=== PATIENT | female | born 1945 | race African-American/Black ===

== ENCOUNTER 2019-04-02 19:23 | Emergency (ER) | payer OTHER ==
[~2019-04-02] VITALS: Ht 167.6 cm; Wt 68.5 kg
[~2019-04-02 19:23] MED LIST: ALBU0.0967 IH; ASPI81EC98 PO; ATOR20TA PO; BECL0.089 IH; BECL0.089 INH; CARV6.25 PO; DAPA5TAB PO; GLIP5TAB4 PO; LEVO500T6 PO; LOSA25TA14 PO; PRED50TA3 PO; RANI-451 PO; UMEC1POW PO
[2019-04-02 19:29] VITALS: BP 175/86
--- NOTE | 2019-04-02 19:32 | NUR ---
TO LOBBY A/W BED AMBULATORY
--- NOTE | 2019-04-02 19:43 | NUR ---
AMBULATED TO ER BED 7
--- NOTE | 2019-04-02 20:04 | NUR ---
PT CAME TO ER C/O SOB X 2 DAYS WITH COUGH. PER PT SHE TAKES FLUTEICASONE PROPIUNATEE 250MCG/SALMETEROL 50MCG. PER PT SHE TOOK 2 PUFFS OF ALBUTEROL AT 19:15. PT IN HIGH FOWLERS POSITION. RESPIRATIONS ARE EVEN AND O2 AT 96% ON ROOM AIR. BREATH SOUNDS BILATERALLY COARSE IN UPPER AIRWAYS. PT DENIES ANY PAIN. PAIN LEVEL 0/10. MED HX: DM, ASTHMA, AND COPD. ALLERGIES: SULFA. SAFETY MEASURES IN PLACE. WAITING FOR ERMD TO EVALUATE PT.
--- NOTE | 2019-04-02 20:44 | NUR ---
PT AMBULATED TO RESTROOM
--- NOTE | 2019-04-02 21:00 | NUR ---
ERMD AT BEDSIDE
[2019-04-02] MEDS ORDERED: IPRATROPIUM 0.02% 0.5 MG/2.5 ML NEBU INH ONE (21:05)
[2019-04-02] MEDS ORDERED: predniSONE 20 MG TAB PO ONE (21:05)
[2019-04-02] MEDS ORDERED: ALBUTEROL 0.083% 2.5 MG/3 ML NEBU INH ONE (21:05)
--- NOTE | 2019-04-02 21:20 | NUR ---
RT AT BEDSIDE
--- NOTE | 2019-04-02 21:55 | NUR ---
PER PT SHE SAYS SHE FEELS ALOT BETTER. O2 SATURATION AT 97% ON ROOM AIR.
--- NOTE | 2019-04-02 21:55 | NUR ---
PT TAKEN TO XRAY
--- NOTE | 2019-04-02 22:30 | NUR ---
PT RESTING IN BED, TALKING TO DAUGHTER. VSS. WILL CONTINUE TO MONITOR.
--- NOTE | 2019-04-02 23:15 | NUR ---
ERMD AT BEDSIDE
[2019-04-03 00:01] VITALS: BP 147/61
--- NOTE | 2019-04-03 00:02 | NUR ---
Patient discharged with v/s stable. Written and verbal after care instructions given and explained. Patient alert, oriented and verbalized understanding of instructions. Ambulatory with steady gait. All questions addressed prior to discharge. ID band removed. Patient advised to follow up with PMD. Rx of PREDNISONE, AZYTHROMYCIN, VENTOLIN given. Patient educated on indication of medication including possible reaction and side effects. Opportunity to ask questions provided and answered.
== END 2019-04-03 00:01 | disposition home or self-care (01) ==
LOC: MED 19:23
DX: J44.1 Chronic obstructive pulmonary disease with (acute) exacerbation (principal); E11.9 Type 2 diabetes mellitus without complications; I10 Essential (primary) hypertension; Z79.82 Long term (current) use of aspirin; Z79.899 Other long term (current) drug therapy; Z88.2 Allergy status to sulfonamides
CPT/HCPCS: 71046; 93005; 94644; 94760; 99285; J7512; J7613; J7644; 99283

== ENCOUNTER 2021-10-31 17:13 | Emergency (ER) | payer OTHER ==
[~2021-10-31] VITALS: Ht 162.6 cm; Wt 59.9 kg
[~2021-10-31 17:13] MED LIST changes: +GLIP5TAB14 PO; -GLIP5TAB4 PO; -LOSA25TA14 PO; +LOSA25TA32 PO; -RANI-451 PO; +RANI-553 PO
[2021-10-31 17:19] VITALS: BP 140/70
--- NOTE | 2021-10-31 18:20 | NUR ---
PT AMBULATED TO ER BED 2
[2021-10-31 18:35] LABS: BASOPHILS # (AUTO) 0.1 K/uL (0.00-0.22); BASOPHILS % (AUTO) 1.1 % (0.0-2.0); EOSINOPHILS # (AUTO) 0.2 K/uL (0-0.4); EOSINOPHILS % (AUTO) 2.3 % (0.0-4.0); HEMATOCRIT 38.4 % (36-48); HEMOGLOBIN 12.7 g/dL (12.0-16.0); LYMPHOCYTES # (AUTO) 1.6 K/uL (2.5-16.5); MEAN CORPUSCULAR HEMOGLOBIN 31 pg (27-31); MEAN CORPUSCULAR HGB CONC 33 g/dL (33-37); MEAN CORPUSCULAR VOLUME 93.4 fL (80-94); MONOCYTES # (AUTO) 0.7 K/uL (0.8-1.0); NEUTROPHILS # (AUTO) 6.2 K/uL (1.8-7.7); NEUTROPHILS % (AUTO) 70.6 % (42.2-75.2); PLATELET COUNT (AUTO) 256 K/uL (140-450); RED BLOOD CELL COUNT(AUTO) 4.11 MIL/uL (4.20-5.40); WHITE BLOOD COUNT (AUTO) 8.8 K/uL (4.8-10.8)
--- NOTE | 2021-10-31 18:40 | NUR ---
76/F BIB SELF WITH C/O LOWER ABDOMINAL PAIN RADIATING TO LOWER BACK SINCE YESTERDAY, STATES TODAY SHE NOTICED "BROWN DISCHARGE" WHEN WIPING HERSELF. SKIN IS PINK/WARM/DRY; AAOX4 WITH EVEN AND STEADY GAIT; LUNGS CLEAR BL; HR EVEN AND REGULAR; PT DENIES ANY FEVER, CP, SOB, OR COUGH AT THIS TIME; PATIENT STATES PAIN OF 2/10 AT THIS TIME; VSS; PATIENT POSITIONED FOR COMFORT; HOB ELEVATED; BEDRAILS UP X2; BED DOWN. ER MD MADE AWARE OF PT STATUS. MEDHX: DM, HTN, COPD, ASTHMA ALLERGIES: SULFA MEDS: FARXIGA, GLIPIZIDE, ASPIRIN, ALBUTEROL
[2021-10-31 18:52] LABS: APPEARANCE,URINE CLEAR (CLEAR); BILIRUBIN,URINE NEGATIVE (NEGATIVE); BLOOD, URINE NEGATIVE (NEGATIVE); COLOR,URINE YELLOW (YELLOW); LEUKOCYTE ESTERASE ,URINE NEGATIVE (NEGATIVE); NITRITE, URINE NEGATIVE (NEGATIVE); PH,URINE 5.5 (5.0-9.0); UGLUCOSE 3+ (NEGATIVE)
[2021-10-31 18:59] LABS: ALBUMIN 3.6 g/dL (3.4-5.0); ANION GAP 10.9 (8-16); ASPARTATE AMINOTRANSFERASE 14 U/L (15-37); CARBON DIOXIDE 30.2 mmol/L (21-32); CHLORIDE 109 mmol/L (98-107); CREATININE 1.1 mg/dL (0.6-1.3); GLUCOSE 177 mg/dL (74-106); POTASSIUM 4.1 mmol/L (3.5-5.1); SODIUM SERUM 146 mmol/L (136-145); TOTAL BILIRUBIN 0.2 mg/dL (0.0-1.0); UREA NITROGEN, BLOOD 16 mg/dL (7-18)
--- NOTE | 2021-10-31 19:30 | NUR ---
ENDORSED BEDSIDE REPORT TO CEJOHNATHAN KANG RN FOR CONTINUITY OF CARE.
[2021-10-31 20:34] VITALS: BP 140/70
--- NOTE | 2021-10-31 20:34 | NUR ---
Patient discharged with v/s stable. Written and verbal after care instructions given and explained. Patient verbalized understanding. Ambulatory with steady gait. All questions addressed prior to discharge. Advised to follow up with PMD. VSS, A/OX4, AMBULATORY, UNALBORED BREATHING, AND CALM DEMEANOR.
== END 2021-10-31 20:34 | disposition home or self-care (01) ==
LOC: MED 17:13
DX: N95.0 Postmenopausal bleeding (principal); J44.9 Chronic obstructive pulmonary disease, unspecified; I10 Essential (primary) hypertension; E11.9 Type 2 diabetes mellitus without complications; Z88.2 Allergy status to sulfonamides; Z79.2 Long term (current) use of antibiotics; Z79.899 Other long term (current) drug therapy; Z79.82 Long term (current) use of aspirin
CPT/HCPCS: 36415; 76856; 80053; 81003; 85025; 99284; Q0092

== ENCOUNTER 2022-04-24 12:25 | Emergency (ER) | payer MEDICARE, OTHER ==
[~2022-04-24] VITALS: Ht 167.6 cm; Wt 56.7 kg
[2022-04-24 12:27] VITALS: BP 146/71
--- NOTE | 2022-04-24 12:40 | NUR ---
C/O GENERALIZED WEAKNESS, 7/10 LEFT THIGH PAIN X 3 DAYS. BLOOD SUGAR 121 AT THIS TIME. PMH: BLIND LEFT EYE, DM
--- NOTE | 2022-04-24 12:40 | NUR ---
PATIENT AMBULATED WITH ASSIST TO BED 2.
[2022-04-24] MEDS ORDERED: NACL 0.9% 1,000 ML IV ONE (12:55)
[2022-04-24 14:18] LABS: BASOPHILS # (AUTO) 0.1 K/uL (0.00-0.22); BASOPHILS % (AUTO) 0.9 % (0.0-2.0); EOSINOPHILS # (AUTO) 0.2 K/uL (0-0.4); EOSINOPHILS % (AUTO) 3.1 % (0.0-4.0); HEMATOCRIT 40.1 % (36-48); HEMOGLOBIN 13.2 g/dL (12.0-16.0); LYMPHOCYTES # (AUTO) 1.7 K/uL (2.5-16.5); LYMPHOCYTES % (AUTO) 24.5 % (20.5-51.1); MEAN CORPUSCULAR HEMOGLOBIN 31 pg (27-31); MEAN CORPUSCULAR HGB CONC 33 g/dL (33-37); MEAN CORPUSCULAR VOLUME 92.8 fL (80-94); MONOCYTES # (AUTO) 0.6 K/uL (0.8-1.0); MONOCYTES % (AUTO) 8.3 % (1.7-9.3); NEUTROPHILS # (AUTO) 4.3 K/uL (1.8-7.7); NEUTROPHILS % (AUTO) 63.2 % (42.2-75.2); PLATELET COUNT (AUTO) 207 K/uL (140-450); RED BLOOD CELL COUNT(AUTO) 4.32 MIL/uL (4.20-5.40); RED CELL DISTRIBUTION WIDTH 15.2 % (11.6-13.7); WHITE BLOOD COUNT (AUTO) 6.9 K/uL (4.8-10.8)
[2022-04-24 14:36] LABS: ALBUMIN 3.5 g/dL (3.4-5.0); ANION GAP 13.4 (8-16); ASPARTATE AMINOTRANSFERASE 14 U/L (15-37); CARBON DIOXIDE 28.6 mmol/L (21-32); CHLORIDE 108 mmol/L (98-107); CREATININE 0.7 mg/dL (0.6-1.3); FREE T4 (FREE THYROXINE) 0.79 ng/dL (0.76-1.46); GLUCOSE 99 mg/dL (74-106); MAGNESIUM 2.2 mg/dL (1.8-2.4); PHOSPHORUS 4.2 mg/dL (2.5-4.9); SODIUM SERUM 146 mmol/L (136-145); THYROID STIMULATING HORMONE 0.52 uIU/mL (0.34-3.74); TOTAL BILIRUBIN 0.3 mg/dL (0.0-1.0); UREA NITROGEN, BLOOD 17 mg/dL (7-18)
[2022-04-24 16:35] VITALS: BP 144/71
--- NOTE | 2022-04-24 16:35 | NUR ---
Patient discharged with v/s stable. Written and verbal after care instructions FOR MUSCLE CRAMPS given and explained. Patient verbalized understanding. Ambulatory with steady gait. All questions addressed prior to discharge. Advised to follow up with PMD.
--- NOTE | 2022-04-24 16:36 | NUR ---
The patient's care was reviewed and supervised by Paulina Natarajan RN.
[2022-04-24 17:58] LABS: APPEARANCE,URINE CLEAR (CLEAR); BILIRUBIN,URINE NEGATIVE (NEGATIVE); BLOOD, URINE NEGATIVE (NEGATIVE); COLOR,URINE YELLOW (YELLOW); LEUKOCYTE ESTERASE ,URINE NEGATIVE (NEGATIVE); NITRITE, URINE NEGATIVE (NEGATIVE); PH,URINE 5.5 (5.0-9.0); UGLUCOSE 3+ (NEGATIVE)
== END 2022-04-24 16:35 | disposition home or self-care (01) ==
LOC: MED 12:25
DX: M62.838 Other muscle spasm (principal); R53.1 Weakness; J44.9 Chronic obstructive pulmonary disease, unspecified; E11.9 Type 2 diabetes mellitus without complications; I10 Essential (primary) hypertension; Z79.2 Long term (current) use of antibiotics; Z79.899 Other long term (current) drug therapy; Z79.82 Long term (current) use of aspirin; Z88.2 Allergy status to sulfonamides
CPT/HCPCS: 36415; 80053; 81003; 82550; 83735; 84100; 84439; 84443; 84484; 85025; 93005; 96360; 99284; J7030

== ENCOUNTER 2022-09-09 12:43 | Emergency (ER) | payer MEDICARE ==
[~2022-09-09] VITALS: Ht 165.1 cm; Wt 59.9 kg
[2022-09-09 13:07] VITALS: BP 144/77
--- NOTE | 2022-09-09 13:17 | NUR ---
C/O SOB, COUGH, NASAL CONGESTION X5 DAYS WITH INCREASED SOB TODAY. TOOK INHALER TODAY X2 H AGO FOR SOB, SATTING 89% ON TRIAGE ALLERGY: SULFA PM: DM, ASTHMA Addendum: 09/09/22 at 1319 by MNSAMANTA COPD
--- NOTE | 2022-09-09 14:12 | NUR ---
DR MIDDLETON AT BEDSIDE FOR EVAL
[2022-09-09] MEDS ORDERED: predniSONE 20 MG TAB PO ONE (14:15)
[2022-09-09] MEDS ORDERED: ALBUTEROL 0.083% 2.5 MG/3 ML NEBU INH ONE (14:15)
[2022-09-09] MEDS ORDERED: IPRATROPIUM 0.02% 0.5 MG/2.5 ML NEBU INH ONE (14:15)
--- NOTE | 2022-09-09 14:30 | NUR ---
RT AT BEDSIDE
[2022-09-09 15:00] VITALS: BP 153/57
[2022-09-09 15:00] LABS: BASOPHILS # (AUTO) 0.1 K/uL (0.00-0.22); BASOPHILS % (AUTO) 0.9 % (0.0-2.0); EOSINOPHILS # (AUTO) 0.5 K/uL (0-0.4); EOSINOPHILS % (AUTO) 6.1 % (0.0-4.0); HEMATOCRIT 39.8 % (36-48); HEMOGLOBIN 13.1 g/dL (12.0-16.0); LYMPHOCYTES % (AUTO) 21.5 % (20.5-51.1); MEAN CORPUSCULAR HEMOGLOBIN 30 pg (27-31); MEAN CORPUSCULAR HGB CONC 33 g/dL (33-37); MEAN CORPUSCULAR VOLUME 92.3 fL (80-94); MONOCYTES # (AUTO) 0.9 K/uL (0.8-1.0); MONOCYTES % (AUTO) 9.5 % (1.7-9.3); NEUTROPHILS # (AUTO) 5.6 K/uL (1.8-7.7); PLATELET COUNT (AUTO) 243 K/uL (140-450); RED BLOOD CELL COUNT(AUTO) 4.31 MIL/uL (4.20-5.40); RED CELL DISTRIBUTION WIDTH 14.3 % (11.6-13.7); WHITE BLOOD COUNT (AUTO) 9.1 K/uL (4.8-10.8)
[2022-09-09 15:38] LABS: ALBUMIN 4.3 g/dL (3.4-5.0); ANION GAP 12.5 (8-16); ASPARTATE AMINOTRANSFERASE 24 U/L (15-37); CARBON DIOXIDE 31.5 mmol/L (21-32); CHLORIDE 103 mmol/L (98-107); CREATININE 0.7 mg/dL (0.6-1.3); GLUCOSE 98 mg/dL (74-106); SODIUM SERUM 143 mmol/L (136-145); TOTAL BILIRUBIN 0.5 mg/dL (0.0-1.0); UREA NITROGEN, BLOOD 12 mg/dL (7-18)
[2022-09-09] MEDS ORDERED: ALBU0.0912 INH (16:09)
[2022-09-09] MEDS ORDERED: PRED20TA5 PO (16:09)
--- NOTE | 2022-09-09 16:19 | NUR ---
Patient discharged with v/s stable. Written and verbal after care instructions ABOUT COPD EXACERBATION, ASTHMA AND TOBACCO USE given and explained. Patient alert, oriented and verbalized understanding of instructions. Ambulatory with steady gait. All questions addressed prior to discharge. ID band removed. Patient advised to follow up with PMD. Rx of PREDNISONE, ALBUTEROL given. Patient educated on indication of medication including possible reaction and side effects. Opportunity to ask questions provided and answered.
== END 2022-09-09 16:19 | disposition home or self-care (01) ==
LOC: MED 12:43
DX: J44.1 Chronic obstructive pulmonary disease with (acute) exacerbation (principal); Z20.822 Contact with and (suspected) exposure to COVID-19; E11.9 Type 2 diabetes mellitus without complications; F17.200 Nicotine dependence, unspecified, uncomplicated; E78.5 Hyperlipidemia, unspecified; Z79.4 Long term (current) use of insulin; Z79.899 Other long term (current) drug therapy
CPT/HCPCS: 36415; 71045; 80053; 85025; 87426; 87804; 93005; 94640; 94760; 99285; J7512; J7613; J7644

== ENCOUNTER 2022-10-10 08:30 | Emergency (ER) | payer MEDICARE ==
[~2022-10-10] VITALS: Ht 165.1 cm; Wt 63.2 kg
[~2022-10-10 08:30] MED LIST changes: +ALBU0.0912 INH; +PRED20TA5 PO
[2022-10-10 08:35] VITALS: BP 168/73
--- NOTE | 2022-10-10 08:44 | NUR ---
PT AMB TO BED 4.
[2022-10-10] MEDS ORDERED: predniSONE 20 MG TAB PO ONE (08:55)
[2022-10-10] MEDS ORDERED: ALBUTEROL SULFATE/IPRATROPIU 3 ML SOL IH ONE (08:55)
[2022-10-10] MEDS ORDERED: ALBUTEROL 0.083% 2.5 MG/3 ML NEBU INH ONE (08:55)
--- NOTE | 2022-10-10 09:04 | NUR ---
RT AT BEDSIDE FOR BREATHING TREATMENT.
[2022-10-10] MEDS ORDERED: PRED20TA5 PO (09:10)
[2022-10-10] MEDS ORDERED: ALBU0.0912 IH (09:10)
--- NOTE | 2022-10-10 09:17 | NUR ---
X-Ray at bedside.
[2022-10-10 09:47] VITALS: BP 168/73
--- NOTE | 2022-10-10 09:47 | NUR ---
Patient discharged with v/s stable. Written and verbal after care instructions given and explained. Patient alert, oriented and verbalized understanding of instructions. Ambulatory with DAUGHTER to car. All questions addressed prior to discharge. ID band removed. Patient advised to follow up with PMD. Rx of ALBUTEROL, PREDNISONE (SENT) given. Patient educated on indication of medication including possible reaction and side effects. Opportunity to ask questions provided and answered. COPY OF IMAGING GIVEN AT THIS TIME
== END 2022-10-10 09:47 | disposition home or self-care (01) ==
LOC: MED 08:30
DX: J44.1 Chronic obstructive pulmonary disease with (acute) exacerbation (principal); E11.9 Type 2 diabetes mellitus without complications; F17.200 Nicotine dependence, unspecified, uncomplicated; Z98.890 Other specified postprocedural states; Z79.899 Other long term (current) drug therapy; Z79.2 Long term (current) use of antibiotics; Z79.82 Long term (current) use of aspirin; Z88.2 Allergy status to sulfonamides
CPT/HCPCS: 71045; 82948; 94640; 99283; J7512; J7613; Q0092

== ENCOUNTER 2023-05-03 21:08 | Observation (INO) | payer MEDICARE ==
[~2023-05-03] VITALS: Ht 167.6 cm; Wt 59.4 kg
[~2023-05-03 21:08] MED LIST changes: +ALBU0.0912 IH; +FURO-572 PO
[2023-05-03 21:16] VITALS: BP 125/66; PULSE 88; RESP 24; TEMP 97; O2SAT 87
[2023-05-03 21:45] VITALS: O2SAT 94
[2023-05-03] MEDS ORDERED: IPRATROPIUM 0.02% 0.5 MG/2.5 ML NEBU INH ONE (21:45)
[2023-05-03] MEDS ORDERED: ALBUTEROL 0.083% 2.5 MG/3 ML NEBU INH ONE (21:45)
[2023-05-03 22:02] VITALS: PULSE 76; PULSE 78; RESP 22; O2SAT 93
[2023-05-03 22:20] LABS: HEMATOCRIT 37.5 % (36-48); HEMOGLOBIN 12.5 g/dL (12.0-16.0); MEAN CORPUSCULAR HGB CONC 33 g/dL (33-37); WHITE BLOOD COUNT (AUTO) 7.7 K/uL (4.8-10.8)
[2023-05-03 22:23] LABS: BASOPHILS # (AUTO) 0.1 K/uL (0.00-0.22); BASOPHILS % (AUTO) 0.9 % (0.0-2.0); EOSINOPHILS # (AUTO) 0.1 K/uL (0-0.4); EOSINOPHILS % (AUTO) 0.9 % (0.0-4.0); LYMPHOCYTES # (AUTO) 0.7 K/uL (2.5-16.5); LYMPHOCYTES % (AUTO) 9.3 % (20.5-51.1); MEAN CORPUSCULAR HEMOGLOBIN 30 pg (27-31); MEAN CORPUSCULAR VOLUME 90.6 fL (80-94); MONOCYTES # (AUTO) 0.2 K/uL (0.8-1.0); MONOCYTES % (AUTO) 2.5 % (1.7-9.3); NEUTROPHILS # (AUTO) 6.7 K/uL (1.8-7.7); NEUTROPHILS % (AUTO) 86.4 % (42.2-75.2); PLATELET COUNT (AUTO) 242 K/uL (140-450); RED BLOOD CELL COUNT(AUTO) 4.14 MIL/uL (4.20-5.40); RED CELL DISTRIBUTION WIDTH 14.1 % (11.6-13.7)
[2023-05-03] MEDS ORDERED: MAG SULF 2000 MG/WATER PREMIX 50 ML IV ONE (22:25)
[2023-05-03] MEDS ORDERED: PIPERACILLIN/TAZOBACTAM 3.375 GM in DEXTROSE 5% 50 ML IV ONE (22:25)
[2023-05-03 22:35] LABS: INR 1.01 (0.8-1.2); PARTIAL THROMBOPLASTIN TIME 23.3 secs (22-35.6); PROTHROMBIN TIME 10.6 secs (10.8-13.4)
[2023-05-03 22:40] LABS: ALANINE AMINOTRANSFERASE 26 U/L (12-78); ALBUMIN 3.8 g/dL (3.4-5.0); ALKALINE PHOSPHATASE 79 U/L (50-136); ANION GAP 14.6 (8-16); ASPARTATE AMINOTRANSFERASE 19 U/L (15-37); CALCIUM 9.1 mg/dL (8.5-10.1); CARBON DIOXIDE 27.5 mmol/L (21-32); CHLORIDE 104 mmol/L (98-107); CREATININE 1.1 mg/dL (0.6-1.3); GLUCOSE 239 mg/dL (74-106); POTASSIUM 4.1 mmol/L (3.5-5.1); SODIUM SERUM 142 mmol/L (136-145); TOTAL BILIRUBIN 0.3 mg/dL (0.0-1.0); TOTAL PROTEIN, SERUM 7.2 g/dL (6.4-8.2); UREA NITROGEN, BLOOD 21 mg/dL (7-18)
[2023-05-03] MEDS ORDERED: PIPERACILLIN/TAZOBACTAM 3.375 GM VIAL IV ONE (22:48)
[2023-05-03] MEDS ORDERED: ALBUTEROL SULFATE/IPRATROPIU 3 ML SOL IH ONE (23:35)
[2023-05-03 23:43] VITALS: PULSE 81; RESP 19; O2SAT 92
[2023-05-04] VITALS (12 sets, daily range): BP systolic 135–145; BP diastolic 66–79; PULSE 78–93; RESP 16–23; TEMP 96.9–97.2; O2SAT 91–94
[2023-05-04] MEDS ORDERED: HYDROcodone/APAP 5/325 MG 1 TAB TAB PO PRN (02:40)
[2023-05-04] MEDS ORDERED: AZITHROMYCIN 500 MG in DEXTROSE 5% 250 ML IV SCH (02:40)
[2023-05-04] MEDS ORDERED: ACETAMINOPHEN 325 MG TAB PO PRN (02:40)
[2023-05-04] MEDS ORDERED: POTASSIUM CHLORIDE 10 MEQ TABER PO PRN (02:40)
[2023-05-04] MEDS ORDERED: MORPHINE SULFATE 4 MG/ML SYR IVP PRN (02:40)
[2023-05-04] MEDS ORDERED: NACL 0.9% 1,000 ML IV SCH (02:40)
[2023-05-04] MEDS ORDERED: AZITHROMYCIN 500 MG INJ VIAL IV ONE (04:58)
[2023-05-04] MEDS: ALBUTEROL SULFATE/IPRATROPIU 3 ML SOL IH PRN ×2 (04:59→15:27)
[2023-05-04] MEDS ORDERED: ALBUTEROL SULFATE/IPRATROPIU 3 ML SOL IH SCH ×2 (07:00→13:00)
[2023-05-04] MEDS: methylPREDNISolone SS 40 MG/ML VIAL IVP SCH ×2 (07:04→13:32)
[2023-05-04] MEDS ORDERED: ENOXAPARIN 40 MG/0.4 ML SYR SUBQ SCH (09:00)
[2023-05-04] MEDS ORDERED: SPIMDI INH (13:51)
== END 2023-05-04 16:45 | disposition home or self-care (01) ==
LOC: MED 21:08 → MTU 05-04 02:41
PROVIDERS: ADMIT Student in an Organized Health Care Education/Training Program; ATTEND Student in an Organized Health Care Education/Training Program
DX: J44.1 Chronic obstructive pulmonary disease with (acute) exacerbation (principal); J96.01 Acute respiratory failure with hypoxia; E11.9 Type 2 diabetes mellitus without complications; I10 Essential (primary) hypertension; E78.5 Hyperlipidemia, unspecified; Z79.82 Long term (current) use of aspirin; Z79.899 Other long term (current) drug therapy
CPT/HCPCS: 36415; 71045; 80053; 83880; 84484; 85025; 85610; 85730; 87040; 87081; 93005; 94640; 96361; 96365; 96366; 96367; 96372; 96375; 96376; 99291; G0378; J0456; J1650; J2543; J2920; J3475; J7060; J7613; J7644; Q0092